=== PATIENT | female | born 1950 | race Caucasian/White ===

== ENCOUNTER 2016-05-06 11:09 | Inpatient (IN) | payer OTHER ==
[~2016-05-06 11:09] MED LIST: ALDACTONE25 MG PO; ARICEPT10 MG PO; ASPIR 8181 MG PO; AUGMENTIN TAB875 MG PO; COLACE 100MG C100 MG PO; CYMBALTA60 MG PO; DEXILANT60 MG PO; DIGOXIN125 MCG PO; FERROUS SULFAT325 M2 PO; HYDROXYZINE HCL10 MG PO; KLONOPIN TAB 00.5 MG PO; KLOR-CON M2020 MEQ PO; LASIX20 MG PO; LEVAQUIN500 MG PO; LEVOTHYROXINE100 MCG PO; LIPITOR TAB 2020 MG PO; LOPRESSOR 25 MG25 MG PO; MEDROL DOSEPAK 24 MG PO; MIRALAX PACK 171 PKT PO; MIRALAX17 GM PO; MS CONTIN30 MG PO; NEURONTIN 300300 MG PO; PREDNISONE 20 M20 MG PO; PREMARIN0.3 MG PO; PROVENTIL HFA 61 INH INH; ROBITUSSIN DM473 ML PO; SINGULAIR10 MG PO; SPIRIVA HANDIH18 MCG INH; SYNTHROID75 MCG PO; TAMIFLU75 MG PO; VANCOCIN 125 M125 MG PO; VITAMIN B-1000 MCG/M IM; VITAMIN D50000 UNIT PO
[2016-05-06 13:46] LABS: HEMOGLOBIN 13.2 gm/dl (12.3-15.3); RED BLOOD COUNT 4.78 M/UL (4.00-5.10); WHITE BLOOD COUNT 10.3 K/UL (4.5-11.0)
[2016-05-06 14:21] LABS: BUN/CREATININE RATIO 16 (0-10)
[2016-05-06] MEDS ORDERED: REQUIP1 MG PO (16:08)
[2016-05-07 02:17] LABS: HEMOGLOBIN 12.6 gm/dl (12.3-15.3); RED BLOOD COUNT 4.59 M/UL (4.00-5.10); WHITE BLOOD COUNT 8.3 K/UL (4.5-11.0)
[2016-05-07 02:36] LABS: BUN/CREATININE RATIO 16 (0-10)
[2016-05-10 04:28] LABS: HEMOGLOBIN 12.9 gm/dl (12.3-15.3); RED BLOOD COUNT 4.71 M/UL (4.00-5.10)
[2016-05-10 04:53] LABS: BUN/CREATININE RATIO 21 (0-10)
[2016-05-11 04:27] LABS: HEMOGLOBIN 12.4 gm/dl (12.3-15.3); RED BLOOD COUNT 4.52 M/UL (4.00-5.10); WHITE BLOOD COUNT 10.9 K/UL (4.5-11.0)
[2016-05-11 05:05] LABS: BUN/CREATININE RATIO 20 (0-10)
[2016-05-11] MEDS ORDERED: AUGMENTIN TAB875 MG PO (15:20)
[2016-05-11] MEDS ORDERED: DALIRESP 500500 MCG PO (15:22)
== END 2016-05-11 16:05 | disposition home or self-care (01) | DRG 189 ==
LOC: ER1 11:09 → PROG CARE 15:05 → ZEROF 15:05 → PROG CARE 20:10
PROVIDERS: Emergency Medicine; Internal Medicine; Internal Medicine Pulmonary Disease; ADMIT Internal Medicine Infectious Disease
PROC: 5A09357 Assistance with Respiratory Ventilation, Less than 24 Consecutive Hours, Continuous Positive Airway Pressure (ICD-10-PCS; 2016-05-06)
PROC: 0BJ08ZZ Inspection of Tracheobronchial Tree, Via Natural or Artificial Opening Endoscopic (ICD-10-PCS; principal; 2016-05-09 07:30)
DX: J96.21 Acute and chronic respiratory failure with hypoxia (principal); J44.0 Chronic obstructive pulmonary disease with (acute) lower respiratory infection; J44.1 Chronic obstructive pulmonary disease with (acute) exacerbation; E66.2 Morbid (severe) obesity with alveolar hypoventilation; Z68.42 Body mass index [BMI] 45.0-49.9, adult; I50.32 Chronic diastolic (congestive) heart failure; F11.20 Opioid dependence, uncomplicated; J20.9 Acute bronchitis, unspecified; J96.22 Acute and chronic respiratory failure with hypercapnia; I27.2 Other secondary pulmonary hypertension; E03.9 Hypothyroidism, unspecified; J45.909 Unspecified asthma, uncomplicated; G89.4 Chronic pain syndrome; E88.01 Alpha-1-antitrypsin deficiency; M79.7 Fibromyalgia; F41.1 Generalized anxiety disorder; Z86.73 Personal history of transient ischemic attack (TIA), and cerebral infarction without residual deficits; Z86.19 Personal history of other infectious and parasitic diseases; Z87.891 Personal history of nicotine dependence; Z86.718 Personal history of other venous thrombosis and embolism; Z93.2 Ileostomy status; Z79.01 Long term (current) use of anticoagulants; Z79.82 Long term (current) use of aspirin; Z79.890 Hormone replacement therapy; Z79.899 Other long term (current) drug therapy; Z88.3 Allergy status to other anti-infective agents; Z90.49 Acquired absence of other specified parts of digestive tract; Z98.890 Other specified postprocedural states; Z82.49 Family history of ischemic heart disease and other diseases of the circulatory system
CPT/HCPCS: 36415; 71010; 71020; 80048; 80053; 82550; 82553; 82803; 83036; 83605; 83735; 83874; 83880; 84146; 84484; 85025; 85027; 87040; 87070; 87205; 93005; 94640; 94660; 94664; 96374; 96375; 99285; J1335; J1650; J1940; J1956; J2250; J2270; J2405; J2920; J2930; J3370; J3420; J7040; J7050; J7070

== ENCOUNTER 2016-08-29 11:10 | Emergency (ER) | payer MEDICARE, OTHER ==
[~2016-08-29 11:10] MED LIST changes: +DALIRESP 500500 MCG PO; +REQUIP1 MG PO
== END 2016-08-29 14:06 | disposition home or self-care (01) ==
LOC: ER1 11:10
DX: M17.11 Unilateral primary osteoarthritis, right knee (principal); I50.9 Heart failure, unspecified; J44.9 Chronic obstructive pulmonary disease, unspecified; Z86.718 Personal history of other venous thrombosis and embolism; Z88.1 Allergy status to other antibiotic agents; M79.604 Pain in right leg
CPT/HCPCS: 73564; 93971; 96372; 99284; J1100; J1885

== ENCOUNTER 2016-11-18 07:51 | Inpatient (IN) | payer MEDICARE, OTHER ==
[~2016-11-18] VITALS: Ht 170.2 cm; Wt 135.2 kg
[2016-11-18 08:44] LABS: HEMOGLOBIN 10.8 gm/dl (12.3-15.3); RED BLOOD COUNT 4.01 M/UL (4.00-5.10); WHITE BLOOD COUNT 10.7 K/UL (4.5-11.0)
[2016-11-18 08:59] LABS: BUN/CREATININE RATIO 6 (0-10)
[2016-11-18] MEDS ORDERED: PREDNISONE10 MG PO (12:26)
[2016-11-18] MEDS ORDERED: DOXEPIN HCL100 MG PO (12:29)
[2016-11-18] MEDS ORDERED: MELOXICAM15 MG PO (12:31)
[2016-11-18] MEDS ORDERED: METHOTREXATE2.5 MG PO (12:33)
[2016-11-18 13:02] LABS: BORDETELLA PERTUSSIS Not Detected (Negative); CHLAMYDOPHLA PNEUMONIAE Not Detected (Negative); CORONAVIRUS HKU1 Not Detected (Negative); CORONAVIRUS NL63 Not Detected (Negative); CORONAVIRUS OC43 Not Detected (Negative); CORONOAVIRUS 229E Not Detected (Negative); HUMAN METAPNEUMOVIRUS Not Detected (Negative); HUMAN RHINOVIRUS/ENTEROVIRUS Not Detected (Negative); INFLUENZA A Not Detected (Negative); INFLUENZA A H-1-2009 Not Detected (Negative); INFLUENZA A H1 Not Detected (Negative); INFLUENZA A H3 Not Detected (Negative); INFLUENZA B Not Detected (Negative); MYCOPLASMA PNEUMONIAE Not Detected (Negative); PARAINFLUENZA VIRUS 1 Not Detected (Negative); PARAINFLUENZA VIRUS 2 Not Detected (Negative); PARAINFLUENZA VIRUS 3 Not Detected (Negative); PARAINFLUENZA VIRUS 4 Not Detected (Negative); RESPIRATORY SYNCYTIAL VIRUS Not Detected (Negative)
[2016-11-18] MEDS ORDERED: PROVENTIL HFA 61 INH INH (15:34)
[2016-11-18] MEDS ORDERED: LIPITOR TAB 2020 MG PO (15:34)
[2016-11-18] MEDS ORDERED: VITAMIN B-1000 MCG/M IM (15:36)
[2016-11-18] MEDS ORDERED: PREMARIN0.3 MG PO (15:37)
[2016-11-18] MEDS ORDERED: FOLIC ACID 1 MG1 MG PO (15:39)
[2016-11-18] MEDS ORDERED: FERROUS SULFAT325 M2 PO (15:39)
[2016-11-18] MEDS ORDERED: SINGULAIR4 MG PO (15:40)
[2016-11-18] MEDS ORDERED: REQUIP1 MG PO (15:40)
[2016-11-18] MEDS ORDERED: LASIX20 MG PO (15:40)
[2016-11-19 04:38] LABS: RED BLOOD COUNT 3.75 M/UL (4.00-5.10); WHITE BLOOD COUNT 11.1 K/UL (4.5-11.0)
[2016-11-19 05:04] LABS: BUN/CREATININE RATIO 7 (0-10)
[2016-11-20 04:58] LABS: HEMOGLOBIN 10.9 gm/dl (12.3-15.3); RED BLOOD COUNT 4.06 M/UL (4.00-5.10)
[2016-11-20 05:17] LABS: BUN/CREATININE RATIO 15 (0-10)
[2016-11-21 04:19] LABS: HEMOGLOBIN 10.6 gm/dl (12.3-15.3); RED BLOOD COUNT 3.97 M/UL (4.00-5.10); WHITE BLOOD COUNT 10.3 K/UL (4.5-11.0)
[2016-11-21 04:36] LABS: BUN/CREATININE RATIO 16 (0-10)
[2016-11-22 05:57] LABS: HEMOGLOBIN 11.3 gm/dl (12.3-15.3); RED BLOOD COUNT 4.21 M/UL (4.00-5.10); WHITE BLOOD COUNT 9.3 K/UL (4.5-11.0)
[2016-11-22 06:19] LABS: BUN/CREATININE RATIO 19 (0-10)
[2016-11-22] MEDS ORDERED: MEDROL DOSEPAK 24 MG PO (18:19)
[2016-11-22] MEDS ORDERED: LEVAQUIN750 MG PO (18:19)
== END 2016-11-22 19:33 | disposition home or self-care (01) | DRG 189 ==
LOC: ER1 07:51 → ZEROF 11:35 → M/S 11:35
PROVIDERS: Emergency Medicine; Internal Medicine; Physician Assistant Medical; ADMIT Internal Medicine
DX: J96.22 Acute and chronic respiratory failure with hypercapnia (principal); J18.9 Pneumonia, unspecified organism; I50.33 Acute on chronic diastolic (congestive) heart failure; J44.0 Chronic obstructive pulmonary disease with (acute) lower respiratory infection; J44.1 Chronic obstructive pulmonary disease with (acute) exacerbation; E66.2 Morbid (severe) obesity with alveolar hypoventilation; E87.2 Acidosis; Z68.42 Body mass index [BMI] 45.0-49.9, adult; J96.21 Acute and chronic respiratory failure with hypoxia; D64.9 Anemia, unspecified; I11.0 Hypertensive heart disease with heart failure; I27.2 Other secondary pulmonary hypertension; E88.01 Alpha-1-antitrypsin deficiency; M79.7 Fibromyalgia; F41.1 Generalized anxiety disorder; Z86.73 Personal history of transient ischemic attack (TIA), and cerebral infarction without residual deficits; Z86.718 Personal history of other venous thrombosis and embolism; E03.9 Hypothyroidism, unspecified; Z90.49 Acquired absence of other specified parts of digestive tract; Z88.1 Allergy status to other antibiotic agents; Z82.49 Family history of ischemic heart disease and other diseases of the circulatory system; Z80.1 Family history of malignant neoplasm of trachea, bronchus and lung; Z80.0 Family history of malignant neoplasm of digestive organs; Z87.01 Personal history of pneumonia (recurrent); Z93.2 Ileostomy status
CPT/HCPCS: 36415; 36600; 71010; 71020; 80048; 80053; 80162; 81001; 82550; 82553; 82728; 82803; 83540; 83550; 83605; 83735; 83880; 84484; 85025; 85027; 85610; 85730; 87040; 87486; 87581; 87633; 87798; 93005; 94640; 94664; 96365; 96375; 99285; J1650; J1940; J1956; J2920; J2930; J8610

== ENCOUNTER 2020-10-29 15:35 | Inpatient (IN) | payer MEDICARE, OTHER ==
[~2020-10-29] VITALS: Ht 175.3 cm; Wt 153.8 kg
[~2020-10-29 15:35] MED LIST changes: -ARICEPT10 MG PO; +ASPIR-LOW81 MG PO; +AUGMENTIN 875-1 EACH PO; +BREO ELLIPTA 21 EACH INH; +CLONAZEPAM0.5 MG PO; -DEXILANT60 MG PO; +DIAMOX 250 MG250 MG PO; +DIFLUCAN150 MG PO; +DIGOX125 MCG PO; +DOXYCYCLINE HY100 M2 PO; +DULERA 200 MCG8.8 GM PO; +ECOTRIN81 MG PO; +FOLIC ACID 1 MG1 MG PO; +IMDUR ER TAB 3030 MG PO; +K-DUR TAB 20 M20 MEQ PO; -KLONOPIN TAB 00.5 MG PO; +LEVAQUIN750 MG PO; +LEVOFLOXACIN500 MG PO; +MEDROL4 MG PO; +MELOXICAM15 MG PO; +METHOTREXATE2.5 MG PO; +METHOTREXATE25 MG/ML SQ; +METOPROLOL TART25 MG PO; -NEURONTIN 300300 MG PO; +NEURONTIN300 MG PO; +PLAQUENIL 200200 MG PO; +PLAQUENIL200 MG PO; +PREDNISONE10 MG PO; +PREDNISONE5 MG PO; +PROAIR HFA8.5 GM INH; +PROTONIX40 MG PO; +TESSALON PERLE100 MG PO; +VIBRAMYCIN 100100 MG PO; +XELJANZ5 MG PO; +XOPENEX0.63 MG/3 INH; +ZOFRAN4 MG PO
[2020-10-29 15:58] LABS: RED BLOOD COUNT 4.62 M/UL (4.00-5.10); WHITE BLOOD COUNT 10.6 K/UL (4.5-11.0)
[2020-10-30 03:28] LABS: HEMOGLOBIN 12.1 gm/dl (12.3-15.3); RED BLOOD COUNT 4.38 M/UL (4.00-5.10); WHITE BLOOD COUNT 12.6 K/UL (4.5-11.0)
[2020-10-30 04:09] LABS: BUN/CREATININE RATIO 13 (0-10)
[2020-10-30] MEDS ORDERED: PERCOCET 10-321 EACH PO (10:48)
[2020-10-30] MEDS ORDERED: KLONOPIN1 MG PO (11:03)
[2020-10-30] MEDS ORDERED: PROTONIX 40 MG40 M1 PO (12:25)
[2020-10-30] MEDS ORDERED: DOXEPIN HCL100 MG PO (12:29)
[2020-10-30] MEDS ORDERED: XALATAN OP SOL2.5 ML EYEBOTH (12:29)
[2020-10-30] MEDS ORDERED: DRISDOL1250 MCG PO (12:30)
[2020-10-30] MEDS ORDERED: IRON325 M1 PO (14:57)
[2020-10-30] MEDS ORDERED: LIPITOR TAB 2020 MG PO (15:34)
[2020-10-30] MEDS ORDERED: SINGULAIR10 MG PO (15:40)
[2020-10-30] MEDS ORDERED: LASIX40 MG PO (16:24)
[2020-10-30] MEDS ORDERED: NEURONTIN300 MG PO (16:25)
[2020-10-30] MEDS ORDERED: CYANOCOBAL1000 MCG/1 INJ (16:30)
[2020-10-30] MEDS ORDERED: PREDNISONE5 MG PO (16:51)
[2020-10-30] MEDS ORDERED: XELJANZ PO (16:53)
[2020-10-30] MEDS ORDERED: NAMENDA5 MG PO (17:01)
[2020-10-30] MEDS ORDERED: DEXILANT60 MG PO (20:10)
[2020-10-30] MEDS ORDERED: ARICEPT10 MG PO (20:25)
[2020-10-31 05:13] LABS: HEMOGLOBIN 12.6 gm/dl (12.3-15.3); RED BLOOD COUNT 4.51 M/UL (4.00-5.10)
[2020-10-31 05:15] LABS: WHITE BLOOD COUNT 9.3 K/UL (4.5-11.0)
[2020-10-31 05:52] LABS: BUN/CREATININE RATIO 19 (0-10)
[2020-11-01 07:26] LABS: BUN/CREATININE RATIO 15 (0-10)
[2020-11-02] MEDS ORDERED: ELIQUIS 5 MG TAB5 MG PO (12:06)
[2020-11-02] MEDS ORDERED: LOPRESSOR 50 MG50 MG PO (12:06)
== END 2020-11-02 13:21 | disposition home or self-care (01) | DRG 291 ==
LOC: ER1 15:35 → MED SURG 4 17:14 → CDU 17:14 → MED SURG 4 10-30 16:48
PROVIDERS: Physician Assistant Medical; Preventive Medicine Occupational Medicine; ADMIT Internal Medicine
DX: I11.0 Hypertensive heart disease with heart failure (principal); J96.21 Acute and chronic respiratory failure with hypoxia; J96.22 Acute and chronic respiratory failure with hypercapnia; Z66 Do not resuscitate; Z20.822 Contact with and (suspected) exposure to COVID-19; J44.1 Chronic obstructive pulmonary disease with (acute) exacerbation; E87.3 Alkalosis; E66.2 Morbid (severe) obesity with alveolar hypoventilation; Z68.43 Body mass index [BMI] 50.0-59.9, adult; I50.33 Acute on chronic diastolic (congestive) heart failure; E88.01 Alpha-1-antitrypsin deficiency; G89.4 Chronic pain syndrome; I07.1 Rheumatic tricuspid insufficiency; I27.20 Pulmonary hypertension, unspecified; E78.5 Hyperlipidemia, unspecified; M79.7 Fibromyalgia; M06.9 Rheumatoid arthritis, unspecified; G47.33 Obstructive sleep apnea (adult) (pediatric); E03.9 Hypothyroidism, unspecified; I48.91 Unspecified atrial fibrillation; Z79.01 Long term (current) use of anticoagulants; Z86.73 Personal history of transient ischemic attack (TIA), and cerebral infarction without residual deficits; Z90.49 Acquired absence of other specified parts of digestive tract; Z90.710 Acquired absence of both cervix and uterus; Z88.1 Allergy status to other antibiotic agents; Z88.5 Allergy status to narcotic agent; Z82.49 Family history of ischemic heart disease and other diseases of the circulatory system
CPT/HCPCS: 36415; 36600; 51702; 71045; 80048; 80053; 80162; 81001; 82550; 82553; 82803; 83605; 83690; 83735; 83874; 83880; 84484; 85025; 85027; 85652; 86140; 87040; 87086; 93005; 94640; 94660; 94664; 94760; 96374; 99285; J1160; J1650; J1940; J2920; U0002

== ENCOUNTER 2020-12-19 21:12 | Inpatient (IN) | payer MEDICARE, OTHER ==
[~2020-12-19] VITALS: Ht 170.2 cm; Wt 145.4 kg
[~2020-12-19 21:12] MED LIST changes: +ARICEPT10 MG PO; +CYANOCOBAL1000 MCG/1 INJ; +DEXILANT60 MG PO; +DOXEPIN HCL100 MG PO; +DRISDOL1250 MCG PO; +ELIQUIS 5 MG TAB5 MG PO; +IRON325 M1 PO; +KLONOPIN1 MG PO; +LASIX40 MG PO; +LOPRESSOR 50 MG50 MG PO; +NAMENDA5 MG PO; +PERCOCET 10-321 EACH PO; +PROTONIX 40 MG40 M1 PO; +XALATAN OP SOL2.5 ML EYEBOTH; +XELJANZ PO
[2020-12-19] MEDS ORDERED: MUCINEX1200 MG PO (22:06)
[2020-12-19] MEDS ORDERED: DEXILANT60 MG PO (22:06)
[2020-12-20 06:27] LABS: HEMOGLOBIN 11.3 gm/dl (12.3-15.3); RED BLOOD COUNT 4.05 M/UL (4.00-5.10)
[2020-12-20 07:01] LABS: BUN/CREATININE RATIO 15 (0-10)
[2020-12-21 04:10] LABS: HEMOGLOBIN 11.5 gm/dl (12.3-15.3); RED BLOOD COUNT 4.14 M/UL (4.00-5.10); WHITE BLOOD COUNT 10.2 K/UL (4.5-11.0)
[2020-12-21 04:31] LABS: BUN/CREATININE RATIO 17 (0-10)
[2020-12-22 05:44] LABS: HEMOGLOBIN 11.1 gm/dl (12.3-15.3); RED BLOOD COUNT 3.95 M/UL (4.00-5.10); WHITE BLOOD COUNT 10.6 K/UL (4.5-11.0)
[2020-12-22 06:04] LABS: BUN/CREATININE RATIO 26 (0-10)
[2020-12-23] MEDS ORDERED: PREDNISONE5 MG PO (11:12)
[2020-12-23] MEDS ORDERED: PREDNISONE 10 M10 MG PO (11:12)
== END 2020-12-23 15:00 | disposition home or self-care (01) | DRG 291 ==
LOC: CDU 21:20 → PROG CARE 21:20 → MED SURG 4 12-21 23:05
PROVIDERS: Internal Medicine; ADMIT Internal Medicine
PROC: B24BZZ4 Ultrasonography of Heart with Aorta, Transesophageal (ICD-10-PCS; principal; 2020-12-20)
PROC: 5A09357 Assistance with Respiratory Ventilation, Less than 24 Consecutive Hours, Continuous Positive Airway Pressure (ICD-10-PCS; 2020-12-21)
PROC: 3E02340 Introduction of Influenza Vaccine into Muscle, Percutaneous Approach (ICD-10-PCS; 2020-12-23)
DX: I50.33 Acute on chronic diastolic (congestive) heart failure (principal); J96.22 Acute and chronic respiratory failure with hypercapnia; J18.9 Pneumonia, unspecified organism; J96.21 Acute and chronic respiratory failure with hypoxia; J98.11 Atelectasis; J44.1 Chronic obstructive pulmonary disease with (acute) exacerbation; E66.2 Morbid (severe) obesity with alveolar hypoventilation; D84.9 Immunodeficiency, unspecified; Z68.43 Body mass index [BMI] 50.0-59.9, adult; Z20.822 Contact with and (suspected) exposure to COVID-19; N20.0 Calculus of kidney; I25.10 Atherosclerotic heart disease of native coronary artery without angina pectoris; F03.90 Unspecified dementia, unspecified severity, without behavioral disturbance, psychotic disturbance, mood disturbance, and anxiety; K76.0 Fatty (change of) liver, not elsewhere classified; E03.9 Hypothyroidism, unspecified; M06.9 Rheumatoid arthritis, unspecified; I48.0 Paroxysmal atrial fibrillation; Z79.899 Other long term (current) drug therapy; E88.01 Alpha-1-antitrypsin deficiency; J84.10 Pulmonary fibrosis, unspecified; Z79.01 Long term (current) use of anticoagulants; Z79.82 Long term (current) use of aspirin; Z99.81 Dependence on supplemental oxygen; Z90.49 Acquired absence of other specified parts of digestive tract; Z93.2 Ileostomy status; Z83.3 Family history of diabetes mellitus; Z80.9 Family history of malignant neoplasm, unspecified; Z90.710 Acquired absence of both cervix and uterus; Z88.1 Allergy status to other antibiotic agents; Z88.5 Allergy status to narcotic agent; Z87.01 Personal history of pneumonia (recurrent); Z86.14 Personal history of Methicillin resistant Staphylococcus aureus infection; I25.2 Old myocardial infarction; Z23 Encounter for immunization
CPT/HCPCS: ECHO; 36415; 36600; 71045; 80048; 80053; 80162; 80202; 80307; 82550; 82553; 82803; 83735; 83880; 84100; 84439; 84443; 84484; 84550; 85025; 85027; 86140; 87070; 87205; 90686; 93005; 93306; 94640; 94664; 94667; 94668; 94760; G0008; J2185; J2930; J3370; J7070

== ENCOUNTER 2021-01-09 17:52 | Emergency (ER) | payer MEDICARE, OTHER ==
[~2021-01-09 17:52] MED LIST changes: +MUCINEX1200 MG PO; +PREDNISONE 10 M10 MG PO
[2021-01-09 19:51] LABS: HEMOGLOBIN 10.5 gm/dl (12.3-15.3); RED BLOOD COUNT 3.76 M/UL (4.00-5.10); WHITE BLOOD COUNT 8.6 K/UL (4.5-11.0)
[2021-01-09 20:16] LABS: BUN/CREATININE RATIO 15 (0-10)
== END 2021-01-09 22:50 | disposition home or self-care (01) ==
LOC: ER1 17:52
PROVIDERS: Physician Assistant
DX: R09.1 Pleurisy (principal); R06.02 Shortness of breath; I50.9 Heart failure, unspecified; Z20.822 Contact with and (suspected) exposure to COVID-19; I48.91 Unspecified atrial fibrillation; J44.9 Chronic obstructive pulmonary disease, unspecified; Z90.710 Acquired absence of both cervix and uterus; Z90.49 Acquired absence of other specified parts of digestive tract; E66.9 Obesity, unspecified; G47.33 Obstructive sleep apnea (adult) (pediatric)
CPT/HCPCS: 71045; 73564; 80053; 82550; 82553; 83874; 83880; 84484; 85025; 93005; 94664; 94760; 99285; J1940; U0002

== ENCOUNTER 2021-02-24 14:06 | Inpatient (IN) | payer MEDICARE, OTHER ==
[~2021-02-24] VITALS: Ht 170.2 cm; Wt 132.0 kg
[~2021-02-24 14:06] MED LIST changes: -ARICEPT10 MG PO; -COLACE 100MG C100 MG PO; -CYANOCOBAL1000 MCG/1 INJ; -IRON325 M1 PO; -LASIX40 MG PO; -XELJANZ PO
[2021-02-24 14:34] LABS: HEMOGLOBIN 12.9 gm/dl (12.3-15.3); RED BLOOD COUNT 4.77 M/UL (4.00-5.10); WHITE BLOOD COUNT 14.1 K/UL (4.5-11.0)
[2021-02-24] MEDS ORDERED: IRON325 M1 PO (14:57)
[2021-02-24 15:00] LABS: BUN/CREATININE RATIO 25 (0-10)
[2021-02-24] MEDS ORDERED: SINGULAIR10 MG PO (15:40)
[2021-02-24] MEDS ORDERED: LASIX40 MG PO (16:24)
[2021-02-24] MEDS ORDERED: CYANOCOBAL1000 MCG/1 INJ (16:30)
[2021-02-24] MEDS ORDERED: XELJANZ PO (16:53)
[2021-02-24] MEDS ORDERED: PREDNISONE5 MG PO (18:55)
[2021-02-24] MEDS ORDERED: JARDIANCE10 MG PO (18:58)
[2021-02-24] MEDS ORDERED: LISINOPRIL5 MG PO (18:59)
[2021-02-24] MEDS ORDERED: PEG3350510 GM PO (19:01)
[2021-02-24] MEDS ORDERED: IPRAT-ALBUT 0.5-3 ML NEB (19:02)
[2021-02-24] MEDS ORDERED: COLACE 100MG C100 MG PO (20:24)
[2021-02-24] MEDS ORDERED: ARICEPT10 MG PO (20:25)
[2021-02-25 04:16] LABS: RED BLOOD COUNT 4.51 M/UL (4.00-5.10)
[2021-02-25 04:21] LABS: WHITE BLOOD COUNT 10.2 K/UL (4.5-11.0)
[2021-02-25 14:04] LABS: ACINETOBACTER BAUMANNII Not Detected (Negative); CANDIDA ALBICANS Not Detected (Negative); CANDIDA KRUSEI Not Detected (Negative); CANDIDA TROPICALIS Not Detected (Negative); ENTEROCOCCUS Not Detected (Negative); ESCHERICHIA COLI Not Detected (Negative); HAEMOPHILUS INFLUENZAE Not Detected (Negative); KLEBSIELLA OXYTOCA Not Detected (Negative); KLEBSIELLA PNEUMONIAE Not Detected (Negative); KPC-CARBAPENEM-RESISTANCE GENE Not Detected (Negative); PROTEUS Not Detected (Negative); PSEUDOMONAS AERUGINOSA Not Detected (Negative); SERRATIA MARCESANS Not Detected (Negative); STAPHYLOCOCCUS AUREUS Not Detected (Negative); STREP AGALACTIAE (GROUP B) Not Detected (Negative); STREP PYOGENES (GROUP A) Not Detected (Negative); STREPTOCOCCUS Not Detected (Negative); vanA/B (VANCOMYCIN RESIST GENE Not Detected (Negative)
[2021-02-25 15:25] LABS: STAPHYLOCOCCUS DETECTED (Negative); mecA (METHICILLIN RESIST GENE DETECTED (Negative)
[2021-02-26 07:08] LABS: HEMOGLOBIN 12.9 gm/dl (12.3-15.3); RED BLOOD COUNT 4.82 M/UL (4.00-5.10); WHITE BLOOD COUNT 7.9 K/UL (4.5-11.0)
[2021-02-27 06:33] LABS: HEMOGLOBIN 12.2 gm/dl (12.3-15.3); RED BLOOD COUNT 4.69 M/UL (4.00-5.10); WHITE BLOOD COUNT 7.6 K/UL (4.5-11.0)
[2021-02-27 06:55] LABS: BUN/CREATININE RATIO 27 (0-10)
[2021-02-28 06:26] LABS: HEMOGLOBIN 12.6 gm/dl (12.3-15.3); RED BLOOD COUNT 4.74 M/UL (4.00-5.10); WHITE BLOOD COUNT 7.7 K/UL (4.5-11.0)
[2021-02-28 07:10] LABS: BUN/CREATININE RATIO 22 (0-10)
[2021-03-01 06:04] LABS: RED BLOOD COUNT 4.54 M/UL (4.00-5.10); WHITE BLOOD COUNT 6.9 K/UL (4.5-11.0)
[2021-03-01 06:10] LABS: BUN/CREATININE RATIO 17 (0-10)
[2021-03-02 04:23] LABS: HEMOGLOBIN 11.9 gm/dl (12.3-15.3); RED BLOOD COUNT 4.46 M/UL (4.00-5.10); WHITE BLOOD COUNT 8.1 K/UL (4.5-11.0)
[2021-03-02 04:40] LABS: BUN/CREATININE RATIO 18 (0-10)
[2021-03-03 04:05] LABS: HEMOGLOBIN 11.8 gm/dl (12.3-15.3); RED BLOOD COUNT 4.37 M/UL (4.00-5.10); WHITE BLOOD COUNT 8.1 K/UL (4.5-11.0)
[2021-03-03 04:25] LABS: BUN/CREATININE RATIO 15 (0-10)
[2021-03-03] MEDS ORDERED: LOPRESSOR 25 MG25 MG PO (16:20)
[2021-03-03] MEDS ORDERED: HUMIBID LA TAB600 MG PO (16:20)
== END 2021-03-03 18:44 | disposition home health service (06) | DRG 291 ==
LOC: ER1 14:06 → CDU 16:47 → M/S 16:47
PROVIDERS: Internal Medicine; Nurse Practitioner; Physician Assistant Medical; ADMIT Internal Medicine
DX: I13.0 Hypertensive heart and chronic kidney disease with heart failure and stage 1 through stage 4 chronic kidney disease, or unspecified chronic kidney disease (principal); J96.21 Acute and chronic respiratory failure with hypoxia; I50.33 Acute on chronic diastolic (congestive) heart failure; I48.20 Chronic atrial fibrillation, unspecified; E66.2 Morbid (severe) obesity with alveolar hypoventilation; N17.9 Acute kidney failure, unspecified; Z20.822 Contact with and (suspected) exposure to COVID-19; Z66 Do not resuscitate; I48.0 Paroxysmal atrial fibrillation; G89.29 Other chronic pain; D50.9 Iron deficiency anemia, unspecified; R74.01 Elevation of levels of liver transaminase levels; L25.9 Unspecified contact dermatitis, unspecified cause; F39 Unspecified mood [affective] disorder; E11.9 Type 2 diabetes mellitus without complications; R29.6 Repeated falls; E87.70 Fluid overload, unspecified; I27.20 Pulmonary hypertension, unspecified; J44.9 Chronic obstructive pulmonary disease, unspecified; J45.909 Unspecified asthma, uncomplicated; M79.7 Fibromyalgia; E78.5 Hyperlipidemia, unspecified; M06.9 Rheumatoid arthritis, unspecified; E03.9 Hypothyroidism, unspecified; E87.5 Hyperkalemia; N18.9 Chronic kidney disease, unspecified; E88.01 Alpha-1-antitrypsin deficiency; Z79.01 Long term (current) use of anticoagulants; Z86.73 Personal history of transient ischemic attack (TIA), and cerebral infarction without residual deficits; Z90.49 Acquired absence of other specified parts of digestive tract; Z93.2 Ileostomy status; Z90.710 Acquired absence of both cervix and uterus; Z88.6 Allergy status to analgesic agent; Z82.49 Family history of ischemic heart disease and other diseases of the circulatory system; I25.2 Old myocardial infarction
CPT/HCPCS: 36415; 36600; 51700; 71045; 80048; 80053; 80061; 80202; 81001; 82550; 82553; 82803; 82962; 83605; 83735; 83874; 83880; 84100; 84439; 84443; 84484; 85025; 85027; 85610; 85730; 87040; 87077; 87150; 87186; 92610; 93005; 94640; 94664; 94667; 94668; 94760; 96374; 96375; 97161; 97530-GP-CQ; 99285; J0456; J1650; J1940; J1956; J3370; J7030; J7070; U0002

== ENCOUNTER → 2021-04-13 | Outpatient (CLI) | payer MEDICARE, OTHER ==
[~2021-04-13] MED LIST changes: +ARICEPT10 MG PO; +COLACE 100MG C100 MG PO; +CYANOCOBAL1000 MCG/1 INJ; +HUMIBID LA TAB600 MG PO; +IPRAT-ALBUT 0.5-3 ML NEB; +IRON325 M1 PO; +JARDIANCE10 MG PO; +LASIX40 MG PO; +LISINOPRIL5 MG PO; +PEG3350510 GM PO; +XELJANZ PO
== END ==
LOC: CATH 06:19
DX: R07.9 Chest pain, unspecified (principal); R94.39 Abnormal result of other cardiovascular function study; I48.91 Unspecified atrial fibrillation; J44.9 Chronic obstructive pulmonary disease, unspecified; J96.12 Chronic respiratory failure with hypercapnia; J96.11 Chronic respiratory failure with hypoxia; I50.33 Acute on chronic diastolic (congestive) heart failure; E66.2 Morbid (severe) obesity with alveolar hypoventilation; J45.40 Moderate persistent asthma, uncomplicated; E88.01 Alpha-1-antitrypsin deficiency; Z88.5 Allergy status to narcotic agent; Z88.6 Allergy status to analgesic agent; Z88.1 Allergy status to other antibiotic agents; Z90.49 Acquired absence of other specified parts of digestive tract; Z68.42 Body mass index [BMI] 45.0-49.9, adult; Z20.822 Contact with and (suspected) exposure to COVID-19
CPT/HCPCS: 99152; C1769; C1887; C1894; J1644; J2250; J3010; J7030; Q9967

== ENCOUNTER → 2021-06-23 | Outpatient (CLI) | payer MEDICARE, OTHER | LOC: HEART 5 10:07 | DX: Z01.818 Encounter for other preprocedural examination (principal); J96.91 Respiratory failure, unspecified with hypoxia; J96.92 Respiratory failure, unspecified with hypercapnia | CPT/HCPCS: 36600; 82803; 94060; 94729 ==